=== PATIENT | male | born 1970 | race Caucasian/White ===

== ENCOUNTER 2017-07-02 06:42 | Inpatient (IN) | payer OTHER ==
[~2017-07-02] VITALS: Ht 177.8 cm; Wt 84.1 kg
--- NOTE | ~2017-07-02 | 2DMMODE ---
[facility] Marva Camilo [employer] [place] [address] 2 D/M-MODE ECHOCARDIOGRAM Name: FRANSICO MATHIS Room #: 203-P [facility] IN .R.#: [id number] Admission: 07/02/17 Attend Phys: Perfecto Daily, Discharge: Date of : 74 Date of Service: 07/04/17 [facility] Report #: [id number] THIS REPORT FOR: //name// APPROVED REPORT Study performed: 07/04/2017 09:49:29 EXAM: Comprehensive 2D, Doppler, and color-flow Echocardiogram Patient Location: Echo lab Room #: 203 Status: routine BSA: 2.02 HR: 79 bpm BP: 169/107 mmHg Rhythm: NSR Other Information Study Quality: Good Indications Hypertension. Hx: HTN, HLP, tobacco and alcohol abuse. 2D Dimensions RVDd: 39.69 mm LVEF(%): 55.60 (>50%) IVSd: 11.57 (7-11mm) LVOT Diam: 22.30 (18-24mm) LVDd: 46.07 mm PWd: 11.62 (7-11mm) Ascending Ao: 34.96 (22-36mm) LVDs: 32.77 (25-40mm) Aortic Root: 33.80 mm Kaplan's LVEF: 55.60 % Volumes Left Atrial Volume (Systole) Single Plane 4CH: 65.91 mL Single Plane 2CH: 76.22 mL LA ESV Index: 38.00 mL/m2 Aortic Valve AoV Peak Jeff.: 1.32 m/s AO Peak Gr.: 6.93 mmHg LVOT Max P.26 mmHg LVOT Max V: 0.90 m/s ELFEGO Vmax: 2.68 cm2 Mitral Valve E/A Ratio: 1.5 MV Decel. Time: 190.05 ms [facility] [place] [address] 2 D/M-MODE ECHOCARDIOGRAM Name: FRANSICO MATHIS Room #: 203-P [facility] IN M.R.#: [id number] Admission: 07/02/17 Attend Phys: Perfecto Daily, Discharge: Date of : 74 Date of Service: 07/04/17 [facility] Report #: [id number] MV E Max Jeff.: 0.78 m/s MV A Jeff.: 0.51 m/s MV PHT: 55.11 ms IVRT: 83.04 ms Pulmonary Valve PV Peak Jeff.: 0.79 m/s PV Peak Gr.: 2.47 mmHg Pulmonary Vein P Vein S: 0.61 m/s P Vein A: 0.61 m/s P Vein D: 0.65 m/s P Vein A Dur.: 103.8 msec P Vein S/D Ratio: 0.94 Tricuspid Valve RAP Estimate: 5.00 mmHg Left Ventricle The left ventricle is normal size. There is normal LV segmental wall motion. Borderline concentric left ventricular hypertrophy. Left ventricular systolic function is normal. LVEF is 55-60%. Right Ventricle The right ventricle is normal size. The right ventricular systolic function is normal. Atria Left atrium is mildly dilated. Right atrium is mildly dilated. Aortic Valve The aortic valve is normal in structure. No aortic regurgitation is present. There is no aortic valvular stenosis. Mitral Valve The mitral valve is normal in structure. Trace to mild mitral regurgitation. No evidence of mitral valve stenosis. Tricuspid Valve The tricuspid valve is normal in structure. Trace tricuspid regurgitation. Unable to assess PA pressure. Pulmonic Valve Pulmonic valve is not well visualized. Great Vessels The aortic root is normal in size. The ascending aorta is normal in [address] [address] 2 D/M-MODE ECHOCARDIOGRAM Name: FRANSICO MATHIS Room #: 203-P [facility] IN .R.#: [id number] Admission: 07/02/17 Attend Phys: Perfecto Daily, Discharge: Date of : 74 Date of Service: 07/04/17 [facility] Report #: [id number] size. IVC is normal in size and collapses >50% with inspiration. Pericardium There is no pericardial effusion. <Conclusion> The left ventricle is normal size. LVEF is 55-60%. Left atrium is mildly dilated. Right atrium is mildly dilated. The aortic valve is normal in structure. The mitral valve is normal in structure. Trace to mild mitral regurgitation. The tricuspid valve is normal in structure. Trace tricuspid regurgitation. Unable to assess PA pressure. Pulmonic valve is not well visualized. There is no pericardial effusion. <ELECTRONICALLY SIGNED> By: Albert Clarke MD 07/04/17 1037 1037 1037 Albert Clarke MD /INF
--- NOTE | ~2017-07-02 | HC ---
[facility] [place] [address] CONSULTATION Name: FRANSICO MATHIS Room #: 203-P ADM IN M.R.#: [id number] Admission: 07/02/17 Attend Phys: Perfecto Daily MD Discharge: Date of : 74 Report #: [id number] THIS REPORT FOR: //name// CC: Perfecto godinez Elma Lor Primary Care Physician DATE OF SERVICE: 07/04/2017 ORTHOPEDIC CONSULTATION NOTE REASON FOR CONSULTATION: Right fifth metatarsal osteomyelitis. HISTORY OF PRESENT ILLNESS: The patient is a 46-year-old male who reports a blister on the plantar aspect of his fifth toe approximately 4 months ago. He reports the blister ruptured and he has been treated by Dr. Perfecto Daily for the wound. He reports it gradually became worse until this last week. It became significantly more swollen and painful. PAST MEDICAL HISTORY: Significant for hypertension, HLD, and history of smoking a pack a day for approximately 20 years. REVIEW OF SYSTEMS: NEUROLOGIC: He reports normal sensation to foot. SKIN: Denies any other wounds. MEDICATIONS: I do not find a home medication list. SOCIAL HISTORY: He works in a warehouse, on his feet all day. He smokes a pack of cigarettes a day for 20 years. Drinks a few beers a day. Lives by himself. ALLERGIES: No known drug allergies. MEDICATIONS: His MAR was reviewed, which shows cyanocobalamin, vancomycin, metoprolol, lisinopril, ergocalciferol, piperacillin, tazobactam, heparin, docusate sodium, carvedilol, metoprolol, nicotine patch, lorazepam, zolpidem, polyethylene glycol, ondansetron, nitroglycerin, hydralazine and hydrocodone. LABORATORY DATA: Laboratory studies show white blood cell count 8, hemoglobin 17.3, hematocrit 50.5 and platelet count 282,000. His chemistry is grossly normal. Vitamin D level is low at 13.1. PHYSICAL EXAMINATION: GENERAL: He is alert and oriented. He interacts appropriately. He is a healthy-appearing 46-year-old male, in no acute distress. He converses well and [address] [address] CONSULTATION Name: FRANSICO MATHIS Room #: 203-P [facility] IN .R.#: [id number] Admission: 07/02/17 Attend Phys: Perfecto Daily MD Discharge: Date of : 74 Report #: [id number] has a normal affect. VITAL SIGNS: Most recent vital signs show temperature of 36.8, heart rate 63, respiratory rate 18, blood pressure 164/105 and pulse oximetry is 100% on room air. EXTREMITIES: Examination of his right lower extremity shows a 1-cm round wound over the plantar surface of the fifth metatarsal head with bone exposed. There is essentially no erythema and there is a grayish appearance to the bone. He has 2+ dorsalis pedis pulse. I am unable to palpate a posterior tibial pulse. He has brisk capillary refill. Sensation is intact to light touch throughout. He wiggles his toes and his ankle. There is no other tenderness in the foot. IMAGING STUDIES: An MRI of the right foot was reviewed and interpreted by myself as well as the report was reviewed, consistent with fifth toe proximal phalanx and metacarpal osteomyelitis. The patient's medical record was reviewed including notes from his admitting physician, wound care and Infectious Disease. IMPRESSION AND PLAN: Right fifth toe osteomyelitis, including the distal aspect of the metatarsal and the proximal phalanx of the small toe. I discussed the diagnosis as well as treatment options. The patient is somewhat reluctant to undergo amputation. He would like to know how it will affect his walking and I discussed that it is best to discuss those specific questions with Dr. Dennis Fischer. I have also discussed the case with Dr. Dennis Fischer briefly. The patient is on the surgery schedule tomorrow at approximately 01:00 p.m. for amputation. However, I would suggest that the patient discuss debridement or amputation with Dr. Fischer. We discussed that osteomyelitis is difficult to treat in the foot in someone who has possibly poor blood flow with simply debridement, and an amputation most likely would give him the speediest recovery with the least likelihood of requiring more surgical procedures. He will consider his options. We will plan for surgery tomorrow if he is stable from a medical and cardiac standpoint. By: 1824 2244 Sherry Roldan MD /nt
--- NOTE | ~2017-07-02 | O ---
[facility] [place] [address] OPERATIVE REPORT Name: FRANSICO MATHIS Room #: 203-P [facility] IN M.R.#: [id number] Admission: 07/02/17 Attend Phys: Perfecto Daily MD Discharge: Date of : 74 Report #: [id number] THIS REPORT FOR: //name// CC: Perfecto Daily FAM unknown Elma Aguilar DATE OF SERVICE: 07/05/2017 PREOPERATIVE DIAGNOSIS: Right fifth metatarsal osteomyelitis. POSTOPERATIVE DIAGNOSIS: Right fifth metatarsal osteomyelitis. PROCEDURE: Right foot fifth ray amputation. SURGEON: Dennis Fischer M.D. OFFICE CHAIR ASSEMBLER: LEE Armstrong. ANESTHESIA: General. ESTIMATED BLOOD LOSS: 1 mL. DRAINS: One [place] drain was placed to the wound. COMPLICATIONS: There were no complications. DESCRIPTION OF PROCEDURE: The patient brought to the operating room where he was placed under general anesthesia. Once under adequate general anesthesia, his right lower extremity was prepped and draped in sterile manner. Extremity was elevated and tourniquet placed to 250 mmHg. A racquet shaped incision was made for the fifth digit and this was taken sharply down to the bone and exposure of the metatarsal was achieved. A sagittal saw was then used to transect the fifth metatarsal in an oblique fashion. Once transected, a 15 blade was used to sharply dissect any soft tissue free from the metatarsal and the toe. These were then subsequently completely removed. The wound was irrigated copiously with normal saline solution and closed over [place] drain with 2-0 nylon suture in simple stitch manner. Please note at the beginning of the case, cultures were taken at the fifth metatarsophalangeal joint. Once complete, the wound was dressed with Xeroform, 4 x 4s, and a sterile soft compressive dressing was placed. Tourniquet was let down at approximately 30 minutes. Toes were pink and warm with good capillary refill. There were no [facility] [address] [place] [address] OPERATIVE REPORT Name: FRANSICO MATHIS Room #: 203-P [facility] IN [facility]#: [id number] Admission: 07/02/17 Attend Phys: Perfecto Daily MD Discharge: Date of : 74 Report #: [id number] complications from the procedure. The patient tolerated the procedure well and went to the recovery room without incident. By: 1355 1403 Dennis Fischer MD /nt
--- NOTE | ~2017-07-02 | HC ---
[facility] [place] [address] CONSULTATION Name: FRANSICO MATHIS Room #: 203-P [facility] IN M.R.#: [id number] Admission: 07/02/17 Attend Phys: Perfecto Daily MD Discharge: Date of : 74 Report #: [id number] THIS REPORT FOR: //name// CC: Perfecto Daily FAM unknown Elma Aguilar DATE OF SERVICE: 07/03/2017 CHIEF COMPLAINT: Neuropathic ulceration of the right foot. HISTORY OF PRESENT ILLNESS: This is a 46-year-old male patient who presents through the wound care clinic to the hospital with a chronic ulceration of 4 months' duration to his right foot and subsequent cellulitis. He has been on intravenous antibiotics over the last 24 hours and states that he is feeling significantly better. He is non-diabetic, but seems to have some diminished sensation in his feet. 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 He had a similar ulceration on his left foot that is healed with some callus present. PAST MEDICAL HISTORY: Negative for any known significant illness or injury. The patient does have a history of hypertension, hyperlipidemia. ALLERGIES: None. SOCIAL HISTORY: The patient is positive for both tobacco use, smoking cigarettes 1 pack per day for the last 20 years. He also has some history of daily alcohol use, consuming a few beers daily. FAMILY HISTORY: Positive for heart disease, diabetes, and hypertension. REVIEW OF SYSTEMS: CONSTITUTIONAL: The patient denies fever, chills, weight loss. NEUROLOGICAL: The patient denies focal weakness, numbness, tingling. EYES: The patient denies visual changes, redness, drainage. ENT: The patient denies earache, nasal drainage, sore throat. CARDIOVASCULAR: The patient denies chest pain, palpitations, diaphoresis. PULMONARY: The patient denies cough, shortness of breath. GASTROINTESTINAL: The patient denies nausea, vomiting, diarrhea or abdominal pain. ORTHOPEDIC: The patient notes ulceration and some pain involving his right foot that is improved in the last 24 hours. GENITOURINARY: The patient denies frequency or urgency of urination. Denies dysuria. Other systems in a 14-point review of systems are negative. PHYSICAL EXAMINATION: [facility] [address] [place] [address] CONSULTATION Name: FRANSICO MATHIS Room #: 203-P [facility] IN [facility].#: [id number] Admission: 07/02/17 Attend Phys: Perfecto Daily MD Discharge: Date of : 74 Report #: [id number] VITAL SIGNS: At this time include pulse rate 72, respiratory rate of 14, blood pressure 177/120. GENERAL: This is a somewhat well-developed, well-nourished male patient who appears to be in minimal distress. HEENT: Normocephalic. Nose and throat are clear. NECK: Supple. LUNGS: Clear. HEART: Regular rhythm. ABDOMEN: Soft. Bowel sounds present. EXTREMITIES: Examination of the lower extremities demonstrate palpable, but diminished distal pulses. He does have normal hair growth pattern on his feet. He has an ulceration on the plantar aspect of the fifth MTP. He does have some light touch sensation, but seems to be somewhat slightly diminished. LABORATORY DATA: Includes sodium 142, potassium 4.2, chloride 105, CO2 of 30, BUN 15, creatinine 1.0, glucose 79. Alkaline phosphatase is 154, total protein 7.7 with an albumin of 3.6. White blood cell count 8000 with a hemoglobin of 17.3, hematocrit 50.5, platelet count 282,000. Sed rate is normal at 5. MRI of the foot demonstrates large plantar lateral soft tissue ulceration to the level of fifth MTP joint with findings suggestive of underlying septic arthrosis and osteomyelitis within the fifth metatarsal and proximal phalanx, nonspecific increased T2 signal within the marrow of the first metatarsal and first proximal phalanx which may be reactive. CLINICAL IMPRESSION: 1. Neuropathic type ulceration of the right foot. 2. Evidence of peripheral arterial disease based on arterial Doppler studies, although he may have adequate flow for healing. 3. Peripheral neuropathy of indeterminate etiology. No evidence of diabetes at this time. It could be related to alcohol consumption. 4. History of tobacco use. The patient may also have accelerated peripheral arterial disease due to his hyperlipidemia, hypertension and tobacco use. He also may possibly have some variation of Buerger's disease or thromboangiitis obliterans. RECOMMENDATIONS: At this point in time, we will continue with local care with silver alginate dressings daily. He continues on intravenous antibiotic therapy. We will need some offloading. I have discussed this case with Dr. Abarca who feels at this time that we could wait on further vascular study. If he fails to have significant healing over the next week or two, could certainly pursue angiography at that point in time. I have discussed with the patient at length his need for him to stop smoking to reduce the rate of arthrosclerotic disease and/or possibly to offset the possibility of Buerger's [facility] [address] [place] [address] CONSULTATION Name: FRANSICO MATHIS Room #: 203-P ADM IN M.R.#: [id number] Admission: 07/02/17 Attend Phys: Perfecto Daily MD Discharge: Date of : 74 Report #: [id number] disease. All questions have been answered. I appreciate being asked to see him in consultation. <ELECTRONICALLY SIGNED> By: Jose A Levine MD 07/04/17 1038 [id number] Jose A Levine MD /nt
--- NOTE | ~2017-07-02 | HC ---
[facility] [place] [address] CONSULTATION Name: FRANSICO MATHIS Room #: 203-P [facility] IN M.R.#: [id number] Admission: 07/02/17 Attend Phys: Perfecto Daily MD Discharge: Date of : 74 Report #: [id number] THIS REPORT FOR: //name// CC: Perfecto Daily FAM unknown Elma Horowitz TYPE OF REPORT: Infectious disease consultation. REASON FOR CONSULTATION: I was asked to evaluate concerning right foot nonhealing wound with secondary infection. HISTORY OF PRESENT ILLNESS: The patient is a 46-year-old with history of hypertension, hyperlipidemia and tobacco use. He has had a nonhealing wound to his right foot over the fifth metatarsal head for about 4 months. This opened up about a month ago. He had a similar lesion to the left side, which did heal. Subsequently, he developed increased erythema and drainage. No fever, chills or sweats. He has been seen in the outpatient wound care center after being placed on a course of doxycycline for 1 week. Because of failure to improve, he now is admitted for further evaluation and treatment. REVIEW OF SYSTEMS: Notes no headache, cough, sputum, nausea, vomiting, diarrhea, dysuria or frequency. No other joint issues. 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 Does smoke cigarettes and significant alcohol intake. ALLERGIES: None known. MEDICATIONS: As noted on his MAR including the doxycycline. PAST MEDICAL HISTORY: Tobacco and alcohol use, hyperlipidemia and hypertension. PAST SURGICAL HISTORY: Appendectomy. FAMILY HISTORY: Diabetes, heart disease and hypertension. SOCIAL HISTORY: As noted above. REVIEW OF SYSTEMS: As noted above. PHYSICAL EXAMINATION: VITAL SIGNS: He was afebrile, hemodynamically stable. GENERAL: He is alert and cooperative and pleasant, in no acute distress. HEENT: Unremarkable. NECK: Supple. No adenopathy. [facility] [address] [place] [address] CONSULTATION Name: FRANSICO MATHIS Room #: 203-P [facility] IN .R.#: [id number] Admission: 07/02/17 Attend Phys: Perfecto Daily MD Discharge: Date of : 74 Report #: [id number] CHEST: Clear. HEART: Regular, without murmur. ABDOMEN: Soft and nontender. EXTREMITIES: Pulses in the groin were normal. Pulses in the popliteal normal. Decreased pulses in the dorsalis pedis and posterior tibial bilaterally. He had erythema to the right foot with 1+ edema. He had ulceration of the lateral aspect of his fifth metatarsal. There was serous drainage. He had mild decreased sensation in the toes on the right compared to left. LABORATORY STUDIES: Hemoglobin 17.3; WBC 8 and platelet count 282,000. Differential unremarkable. Sodium 140, potassium 3.9, bicarbonate 30 and creatinine 0.9. Liver function test normal except for an alkaline phosphatase of 154. TSH 1.4. Sedimentation rate 5. Urinalysis unremarkable except 1+ protein. Arterial studies of the lower extremities show no significant stenosis proximally. Distally, there was atherosclerotic disease below the knees. Blood cultures are pending. RADIOLOGICAL DATA: MRI scan of the foot is pending. IMPRESSION: A 46-year-old with a nonhealing wound to the right foot secondary soft tissue infection. I suspect peripheral vascular disease as his underlying issue. RECOMMENDATIONS: Recommend culturing of the wound and broad antibiotic coverage, pending further studies. We will likely need further arterial workup. Discontinue tobacco use and alcohol use. <ELECTRONICALLY SIGNED> By: Javier Hatch MD 07/03/17 0928 2036 0101 Javier Hatch MD /nt
[2017-07-02 13:10] VITALS: BP 217/125
[2017-07-02 14:26] LABS: ABSOLUTE NEUTROPHILS 6.1 thou/uL (1.4-8.2); BASOPHILS 0.4 % (0.0-2.0); EOSINOPHILS 1.5 % (0.0-3.0); HEMATOCRIT 50.5 % (42.0-52.0); HEMOGLOBIN 17.3 gm/dL (14.0-18.0); LYMPHOCYTES 13.1 % (24.0-44.0); MCH 31.6 pg (26.0-34.0); MCHC 34.3 g/dL (28.0-37.0); MONOCYTES 8.3 % (1.0-8.0); PLATELET COUNT 282 thou/uL (150-400); POLYS 76.7 % (36.0-66.0); RBC 5.49 mil/uL (4.50-6.00); RDW 12.9 % (10.5-14.5)
[2017-07-02 14:42] LABS: ALBUMIN 3.6 g/dL (3.4-5.0); CALCIUM 9.2 mg/dL (8.5-10.1); CREATININE 0.9 mg/dL (0.7-1.3); POTASSIUM 3.9 mmol/L (3.5-5.1); TOTAL BILIRUBIN 0.3 mg/dL (<0.1-1.0); TOTAL PROTEIN 7.7 g/dL (6.4-8.2)
[2017-07-02 14:45] VITALS: BP 205/111
[2017-07-02 15:06] LABS: TSH 1.449 uIU/mL (0.358-3.740)
[2017-07-02 15:41] LABS: URINE BILIRUBIN NEGATIVE (Negative); URINE BLOOD 3+ (Negative); URINE CLARITY CLEAR; URINE COLOR YELLOW; URINE GLUCOSE-RANDOM* NEGATIVE (Negative); URINE KETONES NEGATIVE (Negative); URINE LEUKOCYTES-REFLEX NEGATIVE (Negative); URINE NITRITE-REFLEX NEGATIVE (Negative); URINE PROTEIN (DIPSTICK) 1+ (Negative); URINE SPECIFIC GRAVITY <= 1.005 (1.005-1.035); URINE UROBILINOGEN 0.2 E.U./dl (0.2-1.0)
[2017-07-02 15:51] LABS: SQUAMOUS None Seen /LPF (0-3)
[2017-07-02 15:52] LABS: BACTERIA-REFLEX 1-9 Few /HPF (None Seen); CASTS None Seen /LPF (None Seen); CRYSTALS None Seen /LPF (None Seen); URINE RBC 3-10 Few /HPF (0-2); URINE WBC-REFLEX None Seen /HPF (0-5)
[2017-07-02 19:52] VITALS: BP 194/116
[2017-07-02 22:59] VITALS: BP 178/111
[2017-07-03 04:11] LABS: CALCIUM 8.6 mg/dL (8.5-10.1); MAGNESIUM 2.2 mg/dL (1.8-2.4); POTASSIUM 4.2 mmol/L (3.5-5.1)
[2017-07-03 04:36] VITALS: BP 183/123
[2017-07-03 07:24] VITALS: BP 190/119
[2017-07-03 08:40] VITALS: BP 159/93
[2017-07-03 11:55] VITALS: BP 180/110
[2017-07-03 18:23] VITALS: BP 166/109
[2017-07-03 19:11] VITALS: BP 178/120
[2017-07-04 00:17] VITALS: BP 175/124
[2017-07-04 03:57] LABS: CHOLESTEROL 139 mg/dL (<200); HDL CHOLESTEROL 40 mg/dL (>40); LDL CHOLESTEROL 76 mg/dL (<100); TC:HDL 3.5 Ratio (Not establshd); TRIGLYCERIDE 117 mg/dL (<150); VLDL 23 mg/dL (<40)
[2017-07-04 04:07] LABS: SERUM ASSESSMENT Clear
[2017-07-04 04:27] VITALS: BP 160/107
[2017-07-04 07:50] VITALS: BP 169/107
[2017-07-04 16:50] VITALS: BP 164/105
[2017-07-04 19:21] VITALS: BP 156/105
[2017-07-04 23:32] VITALS: BP 139/95
[2017-07-05] VITALS (8 sets, daily range): BP systolic 133–171; BP diastolic 82–114
[2017-07-06 04:09] LABS: HEMATOCRIT 44.7 % (42.0-52.0); HEMOGLOBIN 15.2 gm/dL (14.0-18.0)
[2017-07-06 04:15] LABS: POTASSIUM 4.3 mmol/L (3.5-5.1)
[2017-07-06 04:27] VITALS: BP 123/76
[2017-07-06 08:05] VITALS: BP 127/79
[2017-07-06 12:26] VITALS: BP 134/84
[2017-07-06 17:18] VITALS: BP 153/97
[2017-07-06 19:20] VITALS: BP 158/100
[2017-07-07 03:09] LABS: HEMATOCRIT 44.7 % (42.0-52.0); MCHC 33.6 g/dL (28.0-37.0); MCV 92.5 fL (80.0-100.0); RBC 4.83 mil/uL (4.50-6.00); RDW 12.9 % (10.5-14.5); WBC 9.2 thou/uL (4.0-11.0)
[2017-07-07 03:13] LABS: CALCIUM 8.4 mg/dL (8.5-10.1); CREATININE 1.1 mg/dL (0.7-1.3); POTASSIUM 4.1 mmol/L (3.5-5.1)
[2017-07-07 04:19] VITALS: BP 179/103
[2017-07-07 08:09] VITALS: BP 162/101
[2017-07-07 12:24] VITALS: BP 159/102
[2017-07-07] MEDS ORDERED: FOSINOPRIL SODI20 MG PO (13:38)
[2017-07-07] MEDS ORDERED: LOPRESSOR100 M1 PO (13:38)
[2017-07-07] MEDS ORDERED: CEFTRIAXON1 GM/50 M1 IVPB (14:54)
[2017-07-07] MEDS ORDERED: HYDROCODON-ACE1 EAC7 PO (14:54)
[2017-07-07 15:36] VITALS: BP 171/111
[2017-07-07 15:50] VITALS: BP 159/104
== END 2017-07-07 16:55 | disposition home or self-care (01) | DRG 474 ==
LOC: HYPER 06:42 → EDBD 06:42 → HYPER 09:05 → 2N 12:51
PROVIDERS: Hospitalist; Nurse Practitioner; Nurse Practitioner Gerontology; Orthopaedic Surgery Foot and Ankle Surgery
PROC: 0Y6M0ZF Detachment at Right Foot, Partial 5th Ray, Open Approach (ICD-10-PCS; principal; 2017-07-02)
PROC: 05HY33Z Insertion of Infusion Device into Upper Vein, Percutaneous Approach (ICD-10-PCS; 2017-07-05)
DX: M86.8X7 Other osteomyelitis, ankle and foot (principal); E43 Unspecified severe protein-calorie malnutrition; L03.115 Cellulitis of right lower limb; M00.9 Pyogenic arthritis, unspecified; I10 Essential (primary) hypertension; E78.5 Hyperlipidemia, unspecified; I73.9 Peripheral vascular disease, unspecified; L97.519 Non-pressure chronic ulcer of other part of right foot with unspecified severity; G62.9 Polyneuropathy, unspecified; F17.210 Nicotine dependence, cigarettes, uncomplicated; I16.0 Hypertensive urgency; Z79.899 Other long term (current) drug therapy; Z83.3 Family history of diabetes mellitus; Z82.49 Family history of ischemic heart disease and other diseases of the circulatory system; Z68.26 Body mass index [BMI] 26.0-26.9, adult
CPT/HCPCS: 10797; 27001; 50010; 50101; 62110; 62900; 70005

== ENCOUNTER 2017-07-30 10:05 | Emergency (ER) | payer OTHER ==
[~2017-07-30] VITALS: Ht 177.8 cm; Wt 86.2 kg
--- NOTE | ~2017-07-30 | EKG ---
[facility] [address] [place] [address] ELECTROCARDIOGRAM REPORT Name: FRANSICO MATHIS Room #: DEP Dyan#: [id number] Admission: 07/30/17 Attend Phys: Discharge: 07/30/17 Date of : 74 Report #: [id number] THIS REPORT FOR: //name// [facility] ED Test Date: 2017-07-30 Test Time: 10:12:49 Pat Name: FRANSICO MATHIS Department: Room: Gender: M Manager Of It: VANITA : 1970 Requested By: Fabrizio Anguiano Order Number: [id number] MD: Tip Severino Measurements Intervals Sanders Rate: 79 P: 56 HI: 145 QRS: 61 QRSD: 93 T: 77 QT: 400 QTc: 459 Interpretive Statements Sinus rhythm Borderline T abnormalities, lateral leads Baseline wander in lead(s) II,III,aVF No previous ECG available for comparison Electronically Signed On 07-31-2017 8:00:56 CDT by Tip Severino [email or web address] <ELECTRONICALLY SIGNED> By: Tip Severino MD, [facility] 07/31/17 0800 1012 1012 Tip Severino MD, FACC /EPI
[~2017-07-30 10:05] MED LIST: CEFTRIAXON1 GM/50 M1 IVPB; FOSINOPRIL SODI20 MG PO; HYDROCODON-ACE1 EAC7 PO; LOPRESSOR100 M1 PO
[2017-07-30 11:15] LABS: ABSOLUTE NEUTROPHILS 3.8 thou/uL (1.4-8.2); BASOPHILS 0.6 % (0.0-2.0); EOSINOPHILS 8.5 % (0.0-3.0); HEMATOCRIT 47.3 % (42.0-52.0); HEMOGLOBIN 16.1 gm/dL (14.0-18.0); LYMPHOCYTES 16.4 % (24.0-44.0); MCH 31.1 pg (26.0-34.0); MCHC 34.1 g/dL (28.0-37.0); MCV 91.2 fL (80.0-100.0); MONOCYTES 10.6 % (1.0-8.0); PLATELET COUNT 164 thou/uL (150-400); POLYS 63.9 % (36.0-66.0); RBC 5.19 mil/uL (4.50-6.00); RDW 12.7 % (10.5-14.5); WBC 5.9 thou/uL (4.0-11.0)
[2017-07-30 11:27] LABS: CALCIUM 9.4 mg/dL (8.5-10.1); CREATININE 0.8 mg/dL (0.7-1.3); POTASSIUM 4.5 mmol/L (3.5-5.1)
[2017-07-30] MEDS ORDERED: NORVASC5 MG PO (11:41)
[2017-07-30] MEDS ORDERED: FOSINOPRIL SODI20 MG PO (11:49)
== END 2017-07-30 12:22 | disposition home or self-care (01) ==
LOC: ER 10:05
PROVIDERS: Physician Assistant
DX: I16.0 Hypertensive urgency (principal); I10 Essential (primary) hypertension; E78.5 Hyperlipidemia, unspecified; Z90.49 Acquired absence of other specified parts of digestive tract